=== PATIENT | female | born 1995 | race Caucasian/White ===

== ENCOUNTER 2019-01-06 02:55 | Emergency (ER) | payer SELFPAY ==
[2019-01-06 03:20] VITALS: BMI 31.6
[2019-01-06 04:07] LABS: BASO % 0.5 % (0-2.0); EOS % 0.3 % (0-4.5); HEMATOCRIT 40.4 % (32.4-45.2); HEMOGLOBIN 13.4 GM/dL (10.7-15.3); LYMPH % 18.2 % (8-40); MCH 29.3 pg (25.7-33.7); MCHC 33.2 g/dl (32.0-36.0); MEAN CELL VOLUME 88.2 fl (80-96); MEAN PLT VOLUME 9.2 fl (7.5-11.1); PLATELET COUNT 319 K/MM3 (134-434); RBC 4.58 M/mm3 (3.60-5.2); RDW 14.1 % (11.6-15.6); WHITE BLOOD COUNT 14.6 K/mm3 (4.0-10.0)
--- NOTE | 2019-01-06 04:55 | PDOC ---
History of Present Illness - General Chief Complaint: Vaginal Bleeding Stated Complaint: VAGINAL BLEEDING, 6 WKS Time Seen by Provider: 01/06/19 03:26 - History of Present Illness Initial Comments: 01/06/19 04:57 23 yo , A0, at 7 wga, visualized on home/office test, LMP (), no significant pmh who p/w vaginal bleeding. Patient reports acute onset of vaginal bleeding at approximately 130 AM noticed after urination with wiping on toilet paper. Also endorses diffuse crampy, abdominal pain with absent pelvic pain. Patient states pain consistent with prior menstruation. No identifiable triggers or alleviators. Denies recent abdominal trauma. Patient denies SOTO, vision change, palpitations, cough, wheezing, orthopena, PND , leg swelling/pain, N/V, F,C, CP, SOB, urinary complaints, hematuria, BPR, vaginal burning/itching, diarrhea, constipation, lightheadedness, weakness, sensory changes. 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 No weakness. HEAD, EYES, EARS, NOSE AND THROAT: No change in vision. No ear pain or discharge. No sore throat. CARDIOVASCULAR: No chest pain or shortness of breath RESPIRATORY: No cough, wheezing, or hemoptysis. GASTROINTESTINAL: No nausea, vomiting, diarrhea or constipation. GENITOURINARY: + Vaginal bleeding, abdominal pain. No dysuria, frequency, or change in urination. MUSCULOSKELETAL: No joint or muscle swelling or pain. No neck or back pain. SKIN: No rash NEUROLOGIC: No headache, vertigo, loss of consciousness, or change in strength/ sensation. ENDOCRINE: No increased thirst. No abnormal weight change HEMATOLOGIC/LYMPHATIC: No anemia, easy bleeding, or history of blood clots. ALLERGIC/IMMUNOLOGIC: No hives or skin allergy. *Physical Exam - Vital Signs Last Vital Signs Temp Pulse Resp BP Pulse Ox 98.3 F 81 19 117/64 99 01/06/19 02:55 01/06/19 02:55 01/06/19 02:55 01/06/19 02:55 01/06/19 02:55 - Physical Exam Comments: 01/06/19 05:01 GENERAL: Awake, alert, and fully oriented, in no acute distress HEAD: No signs of trauma, normocephalic, atraumatic EYES: PERRLA, EOMI, sclera anicteric, conjunctiva clear ENT: Auricles normal inspection, hearing grossly normal, nares patent, oropharynx clear without exudates. Moist mucosa NECK: Normal ROM, supple, no lymphadenopathy, JVD, or masses LUNGS: No distress, speaks full sentences, clear to auscultation bilaterally HEART: Regular rate and rhythm, normal S1 and S2, no murmurs, rubs or gallops, peripheral pulses normal and equal bilaterally. ABDOMEN: Soft, diffuse ttp, normoactive bowel sounds. No guarding, no rebound. No masses. Neg CVA ttp. GENITOURINARY: Nml appearing external genitalia, with absent lesions. Vaginal vault with dark brown discharge. Cervical os closed. Neg CMT on BM. Neg adenexal ttp, or mass palpated. EXTREMITIES : Normal inspection, Normal range of motion, no edema. No clubbing or cyanosis. NEUROLOGICAL: Cranial nerves II through XII grossly intact. Normal speech, normal gait, no focal sensorimotor deficits SKIN: Warm, Dry, normal turgor, no rashes or lesions noted ED Treatment Course - LABORATORY CBC & Chemistry Diagram: 01/06/19 03:57 01/06/19 03:57 - ADDITIONAL ORDERS Additional order review: 01/06/19 03:57 RBC 4.58 MCV 88.2 MCHC 33.2 RDW 14.1 MPV 9.2 Neutrophils % 77.0 Lymphocytes % 18.2 Monocytes % 4.0 Eosinophils % 0.3 Basophils % 0.5 Medical Decision Making - Medical Decision Making 01/06/19 05:25 23 yo , A0, at 7 wga, visualized on home/office test, LMP (), no significant pmh who p/w vaginal bleeding and diffuse abdominal pain. Vitals wnl, AF, A&Ox3. Physical exam with diffuse abdominal ttp. exam with brown discharge in vaginal vault. Will assess for viable IUP vs. LUIS ALFREDO, ectopic , heterotopic , threatened . Will consider cystitis, nephrolithaisis, colitis. ED Course: 01/06/19 05:59 Laboratory Tests 01/06/19 01/06/19 01/06/19 03:57 03:57 04:50 WBC 14.6 H Hgb 13.4 Hct 40.4 Plt Count 319 Sodium 137 Potassium 3.4 L BUN 8.6 Creatinine 0.6 Troponin I < 0.02 Beta HCG, Quant 94581.4 Urine Color Yellow Urine Nitrite Negative 01/06/19 06:28 Bedside transabdominal u/s with absent definitive Patient pending TVUS, blood type O+ 01/06/19 06:28 Stable, plan to endorse to day team *DC/Admit/Observation/Transfer Diagnosis at time of Disposition: Vaginal bleeding during - Discharge Dispostion Condition at time of disposition: Stable - Referrals - Patient Instructions Printed Discharge Instructions: DI for Vaginal Bleeding During Additional Instructions: Please return to the emergency department with any new or worsening symptoms or concerns. Please follow up with your Honing Job Setter or primary care physician within 48 hours. Return to ED in 48 hours for repeat testing. - Post Discharge Activity
[2019-01-06 05:04] LABS: URINE APPEARANCE CLEAR; URINE BILIRUBIN NEGATIVE (NEGATIVE); URINE COLOR YELLOW; URINE GLUCOSE (UA) NEGATIVE (NEGATIVE); URINE KETONE 1+ (NEGATIVE); URINE LEUK ESTERASE NEGATIVE (NEGATIVE); URINE NITRITE NEGATIVE (NEGATIVE); URINE PROTEIN NEGATIVE (NEGATIVE); URINE UROBILINOGEN 0.2 mg/dL (0.2-1.0)
[2019-01-06 05:10] LABS: ANION GAP 9 MMOL/L (8-16); BLOOD UREA NITROGEN 8.6 mg/dL (7-18); CALCIUM 9.2 mg/dL (8.5-10.1); CHLORIDE 105 mmol/L (98-107); CO2 23 mmol/L (21-32); CREATININE 0.6 mg/dL (0.55-1.3); GLUCOSE,RANDOM 98 mg/dL (74-106); POTASSIUM 3.4 mmol/L (3.5-5.1); SODIUM 137 mmol/L (136-145)
[2019-01-06 05:20] LABS: INR 1.24 (0.83-1.09); PROTHROMBIN TIME (PATIENT) 14.7 SEC (9.7-13.0)
--- NOTE | 2019-01-06 06:44 | PDOC ---
Documentation entered by Ramon Dodge SCRIBE, acting as scribe for Cortney Self DO. Cortney Self DO: This documentation has been prepared by the Dar gutiérrez Daniel, SCRIBE, under my direction and personally reviewed by me in its entirety. I confirm that the documentation accurately reflects all work , treatment, procedures, and medical decision making performed by me. Attending Attestation - Resident Resident Name: Samy House - ED Attending Attestation I have performed the following: I have examined & evaluated the patient, The case was reviewed & discussed with the resident, I agree w/resident's findings & plan - HPI HPI: 01/06/19 04:44 The patient is a 23 year old female with no past medical history here today for evaluation of vaginal bleeding and abdominal pain. The patient reports that she has been having bright red blood streaking and diffuse abdominal pain that is more prominent in the upper quadrants since 1 AM. She notes that her abdominal pain is similar to her menstrual cramping. She reports being 6 weeks via office test. Patient denies headache, lightheadedness. Denies fever, chills. Denies chest pain, shortness of breath. Denies nausea, vomiting, diarrhea. Allergies: NKA - Physicial Exam PE: 01/06/19 04:44 Agree with the resident's physical exam. - Medical Decision Making 01/06/19 06:43 23-year-old female with positive , abdominal cramps and bleeding Patient's beta quantitative level is higher than expected for given dates No definitive intrauterine gestation found on bedside ultrasound Formal ultrasound ordered and pending Case signed out to oncoming shift
[2019-01-06 07:36] VITALS: BP 117/71; PULSE 87; TEMP 97.9
[2019-01-06 07:51] LABS: ALBUMIN 3.9 g/dl (3.4-5.0); ALK PHOS 71 U/L (45-117); BILIRUBIN,TOTAL 0.3 mg/dL (0.2-1); SGOT/AST 12 U/L (15-37); SGPT/ALT 17 U/L (13-61); TOT PROT 7.2 g/dl (6.4-8.2)
--- NOTE | 2019-01-06 10:16 | PDOC ---
*Physical Exam - Vital Signs Last Vital Signs Temp Pulse Resp BP Pulse Ox 97.9 F 87 19 117/71 99 01/06/19 07:13 01/06/19 07:13 01/06/19 02:55 01/06/19 07:13 01/06/19 07:13 - Physical Exam Comments: 01/06/19 10:14 23-year-old female presents with vaginal bleeding. Beta-hCG is noted to be 93, 000. Transvaginal ultrasound shows an IUP at 6 weeks 5 days with FH of 120. Trace fluid in the cul-de-sac and bilateral corpus luteum cyst. Patient's vital signs stable. Patient's Rh+. Urinalysis reveals no pyuria. Will discharge with diagnosis of threatened with OB follow-up. ED Treatment Course - LABORATORY CBC & Chemistry Diagram: 01/06/19 03:57 01/06/19 03:57 - ADDITIONAL ORDERS Additional order review: Laboratory Results 01/06/19 01/06/19 01/06/19 04:50 03:57 03:57 PT with INR 14.70 H INR 1.24 H Sodium Potassium Chloride Carbon Dioxide Anion Gap BUN Creatinine Est GFR (CKD-EPI)AfAm Est GFR (CKD-EPI)NonAf Random Glucose Calcium Total Bilirubin AST ALT Alkaline Phosphatase Creatine Kinase Troponin I Total Protein Albumin Beta HCG, Quant Urine Color Yellow Urine Appearance Clear Urine pH 6.0 Ur Specific Franklin 1.026 Urine Protein Negative Urine Glucose (UA) Negative Urine Ketones 1+ H Urine Blood Negative Urine Nitrite Negative Urine Bilirubin Negative Urine Urobilinogen 0.2 Ur Leukocyte Esterase Negative Blood Type O POSITIVE Antibody Screen Negative 01/06/19 03:57 PT with INR INR Sodium 137 Potassium 3.4 L Chloride 105 Carbon Dioxide 23 Anion Gap 9 BUN 8.6 Creatinine 0.6 Est GFR (CKD-EPI)AfAm 148.90 Est GFR (CKD-EPI)NonAf 128.48 Random Glucose 98 Calcium 9.2 Total Bilirubin 0.3 AST 12 L ALT 17 Alkaline Phosphatase 71 Creatine Kinase 86 Troponin I < 0.02 Total Protein 7.2 Albumin 3.9 Beta HCG, Quant 10805.4 Urine Color Urine Appearance Urine pH Ur Specific Franklin Urine Protein Urine Glucose (UA) Urine Ketones Urine Blood Urine Nitrite Urine Bilirubin Urine Urobilinogen Ur Leukocyte Esterase Blood Type Antibody Screen 01/06/19 03:57 RBC 4.58 MCV 88.2 MCHC 33.2 RDW 14.1 MPV 9.2 Neutrophils % 77.0 Lymphocytes % 18.2 Monocytes % 4.0 Eosinophils % 0.3 Basophils % 0.5 *DC/Admit/Observation/Transfer Diagnosis at time of Disposition: Vaginal bleeding during , Threatened - Discharge Dispostion Disposition: HOME Condition at time of disposition: Stable - Referrals Referrals: Aure Hardin MD [Staff Physician] - - Patient Instructions Printed Discharge Instructions: DI for Vaginal Bleeding During , DI for Threatened Additional Instructions: Please return to the emergency department with any new or worsening symptoms or concerns. Please follow up with your Switch Tender or primary care physician within 48 hours. Return to ED in 48 hours for repeat testing. Print Language: [place] R[place] - Post Discharge Activity
== END 2019-01-06 10:23 | disposition home or self-care (01) ==
LOC: JER 02:55
DX: O26.891 Other specified pregnancy related conditions, first trimester (principal); Z3A.01 Less than 8 weeks gestation of pregnancy; N93.9 Abnormal uterine and vaginal bleeding, unspecified; R10.9 Unspecified abdominal pain
CPT/HCPCS: 36415; 76801-TC; 80048; 80053; 81003; 82550; 84484; 84702; 85025; 85610; 86850; 86900; 86901; 87086; 99282-25

== ENCOUNTER 2019-08-20 14:15 | Inpatient (IN) | payer OTHER ==
[2019-08-20] MEDS ORDERED: morphine SULFATE/PF 0.5 MG/ML (2cc Syringe - QUVA) ONE ×2 (14:37→16:11)
[2019-08-20] MEDS ORDERED: ceFAZolin SODIUM 1 GM VIAL ONE (14:37)
[2019-08-20] MEDS ORDERED: IBUPROFEN 600 MG TABLET (FP) PO PRN (15:35)
[2019-08-20] MEDS ORDERED: ACETAMINOPHEN 325 MG TABLET (FP) PO PRN (15:35)
[2019-08-20] MEDS ORDERED: ONDANSETRON 4 MG/2 ML VIAL IVPUSH PRN ×2 (15:35→17:51)
[2019-08-20] MEDS ORDERED: ELECTROLYTE-148 SOLN 1,000 ML IV SCH (15:45)
--- NOTE | 2019-08-20 15:45 | HP ---
Past Medical History - Primary Care Physician PCP:: Ottoniel Potts - Admission Chief Complaint: 39 weeks, previous c/s, request of repeat c/s History of Present Illness: 23 yo f with 39 weeks ,previous c/s, request of repeat c/s, risks of repeat c/s has discussed with patient, cx clp, vx -3 mi, fhr cat1 History Source: Patient Limitations to Obtaining History: Language Barrier - Past Surgical History Past Surgical History: Yes: Hx Myomectomy: No Hx Transabdominal Cerclage: No - Smoking History Smoking history: Never smoked Have you smoked in the past 12 months: No - Alcohol/Substance Use Hx Alcohol Use: No - Social History History of Recent Travel: No Home Medications - Allergies Allergies/Adverse Reactions: Allergies Allergy/AdvReac Type Severity Reaction Status Date / Time No Known Allergies Allergy Verified 01/06/19 03:20 - Home Medications Home Medications: Ambulatory Orders Vitamins (Sjr) - 1 tab PO DAILY 08/20/19 Valtrex 500 mg PO DAILY 08/20/19 Ibuprofen 600 mg PO Q6H PRN #30 tablet 08/23/19 Review of Systems - Review of Systems Constitutional: reports: No Symptoms Eyes: reports: No Symptoms HENT: reports: No Symptoms Neck: reports: No Symptoms Cardiovascular: reports: No Symptoms Respiratory: reports: No Symptoms Gastrointestinal: reports: No Symptoms Genitourinary: reports: No Symptoms Breasts: reports: No Symptoms Reported Musculoskeletal: reports: No Symptoms Integumentary: reports: No Symptoms Neurological: reports: No Symptoms Endocrine: reports: No Symptoms Hematology/Lymphatic: reports: No Symptoms Psychiatric: reports: No Symptoms Physical Exam - Maternity Constitutional: Yes: Well Nourished, No Distress, Calm Eyes: Yes: WNL, Conjunctiva Clear, EOM Intact HENT: Yes: WNL, Atraumatic, Normocephalic Neck: Yes: WNL, Supple, Trachea Midline Cardiovascular: Yes: WNL, Regular Rate and Rhythm Breast(s): Yes: WNL - Abdominal Exam/OB Fundal Height: 40 Number of Fetuses: Single Presentation: Vertex Contractions: No Intensity: Unaware Monitor Mode: External Heart Rate Location: [facility] Category: I - Vaginal Exam/OB Vaginal Bleediing: No Speculum Exam: No Dilatation (cm): closed Effacement (%): 0 Amniotic Membrane Status: Intact Presentation: Vertex/Position Station: -3 - Physical Exam Musculoskeletal: Yes: WNL Extremities: Yes: WNL Edema: LLE: Trace, RLE: Trace Deep Tendon Reflex Grade: Normal +2 Psychiatric: Yes: WNL Hemorrhage Risk Assessment - Risk Factors Medium Risk Factors: Yes: Prior , uterine surgery,or multiple laparotomies Risk Score: 1 Risk Level: Medium Risk Problem List - Problems (1) 39 weeks gestation of Code(s): Z3A.39 - 39 WEEKS GESTATION OF (2) with 39 completed weeks gestation Code(s): Z3A.39 - 39 WEEKS GESTATION OF (3) Previous section complicating Code(s): O34.219 - MATERNAL CARE FOR UNSP TYPE SCAR FROM PREVIOUS DEL Assessment/Plan repeat c/s
[2019-08-20] MEDS ORDERED: CITRIC ACID/SODIUM CITRATE 30 ML UNIT-DOSE CUP PO ONE (15:46)
[2019-08-20 15:54] VITALS: BMI 33.6
[2019-08-20] MEDS ORDERED: OXYTOCIN 20 UNITS in 0.9% NS 20 UNIT/1,000 ML INFUS.BAG IV ONE ×2 (16:08→18:28)
[2019-08-20] MEDS ORDERED: OXYTOCIN 10 UNITS/ML VIAL ONE (16:09)
[2019-08-20] MEDS ORDERED: KETOROLAC TROMETHAMINE 30 MG/1 ML VIAL ONE ×2 (16:57→16:58)
[2019-08-20] MEDS ORDERED: IBUPROFEN 800 MG/8 ML IJ IVPB PRN (17:37)
[2019-08-20] MEDS ORDERED: WITCH HAZEL 50% (TUCKS) 40 PAD/JAR PAD TP PRN (17:37)
[2019-08-20] MEDS ORDERED: BENZOCAINE 20% 57 GM BOTTLE TP PRN (17:37)
[2019-08-20] MEDS ORDERED: BENZOCAINE 28 GM HEMORRHOIDAL OINTMENT PR PRN (17:37)
[2019-08-20] MEDS ORDERED: METHYLERGONOVINE MALEATE 0.2 MG/1 ML AMP IM PRN (17:37)
[2019-08-20] MEDS ORDERED: diphenhydrAMINE HCL 25 MG CAPSULE (FP) PO PRN (17:37)
[2019-08-20] MEDS ORDERED: oxyCODONE HCL 5 MG TABLET PO PRN ×2 (17:37)
--- NOTE | 2019-08-20 17:43 | OP ---
Operative Note - Note: Operative Date: 08/20/19 Pre-Operative Diagnosis: 39 weeks, previuos c/s Operation: repeat LST c/s Findings: live baby girl 9/ rot , cord around neck once Post-Operative Diagnosis: Same as Pre-op Surgeon: Ottoniel Potts Cycle Consultant: Eugenio Humphries Anesthesia: Spinal Specimens Removed: placenta Estimated Blood Loss (mls): 500 Drains & Tubes with Location: wolf Drains, Volume Out (mls): 300 Blood Volume Replaced (mls): 0 Fluid Volume Replaced (mls): 1,300 Operative Report Dictated: Yes
[2019-08-20] MEDS ORDERED: DEXTROSE 5%-LACTATED RINGERS 1,000 ML IV SCH (17:45)
[2019-08-20] MEDS ORDERED: morphine SULFATE/PF 0.5 MG/ML (2cc Syringe - QUVA) EP ONE (17:51)
[2019-08-20] MEDS ORDERED: CEFAZOLIN 1 GM/D5W 1 GM/50 ML BAG IVPB SCH (18:00)
[2019-08-20] MEDS: OXYTOCIN 20 UNITS in 0.9% NS 20 UNIT/1,000 ML INFUS.BAG IV SCH (18:16)
[2019-08-21] MEDS: CEFAZOLIN 1 GM/D5W 1 GM/50 ML BAG IVPB SCH ×3 (03:04→19:18)
[2019-08-21] MEDS: OXYTOCIN 20 UNITS in 0.9% NS 20 UNIT/1,000 ML INFUS.BAG IV SCH (04:57)
[2019-08-21 09:36] LABS: BASO % 0.2 % (0-2.0); EOS % 0.7 % (0-4.5); HEMATOCRIT 32.4 % (32.4-45.2); HEMOGLOBIN 10.7 GM/dL (10.7-15.3); LYMPH % 28.1 % (8-40); MCHC 32.9 g/dl (32.0-36.0); MEAN CELL VOLUME 84.9 fl (80-96); MEAN PLT VOLUME 9.9 fl (7.5-11.1); MONO % 7.5 % (3.8-10.2); NEUT % 63.5 % (42.8-82.8); PLATELET COUNT 216 K/MM3 (134-434); RBC 3.81 M/mm3 (3.60-5.2); RDW 17.1 % (11.6-15.6); WHITE BLOOD COUNT 9.1 K/mm3 (4.0-10.0)
[2019-08-21] MEDS: ENOXAPARIN NA (PORCINE) 40 MG/0.4 ML DISP.SYRIN SQ SCH (10:16)
[2019-08-21] MEDS: IBUPROFEN 600 MG TABLET (FP) PO PRN ×2 (16:51→23:44)
[2019-08-21] MEDS: SIMETHICONE 80 MG TAB.CHEW (FP) PO PRN ×2 (16:51→23:44)
[2019-08-21] MEDS: ACETAMINOPHEN 325 MG TABLET (FP) PO PRN ×2 (16:53→23:44)
[2019-08-21] MEDS ORDERED: BISACODYL 10 MG SUPP.RECT RC PRN (17:37)
--- NOTE | 2019-08-21 18:41 | PN ---
Progress Note (short form) - Note Progress Note: pod 1 s/p repeat /s , wolf was removed , was unable to void , was straight cath for 900cc CBC, BMP 08/21/19 08:27 Last Vital Signs Temp Pulse Resp BP Pulse Ox 97.8 F 73 20 90/58 L 08/21/19 10:00 08/21/19 10:00 08/21/19 17:00 08/21/19 10:00 abdomen soft, non tender, no cva BS present , no distention incision dry, clean no excess vaginal bleeding impression post op urinary retention most likly related to spinal anesthesia plan keep wolf for 24 hr urine c/s ambulate , advance diet
[2019-08-21 19:06] LABS: EPI CELLS 0.3 /HPF (0-5/HPF); HYALINE CASTS 0 /lpf (0-8); PH,URINE 6.5 (5.0-8.0); URINE APPEARANCE CLEAR; URINE BACTERIA 0.3 /hpf (NEGATIVE); URINE BILIRUBIN NEGATIVE (NEGATIVE); URINE COLOR YELLOW; URINE GLUCOSE (UA) NEGATIVE (NEGATIVE); URINE KETONE NEGATIVE (NEGATIVE); URINE LEUK ESTERASE NEGATIVE (NEGATIVE); URINE NITRITE NEGATIVE (NEGATIVE); URINE PROTEIN NEGATIVE (NEGATIVE); URINE RBC 1 /hpf (0-4); URINE UROBILINOGEN 0.2 mg/dL (0.2-1.0); URINE WBC 0 /hpf (0-5)
--- NOTE | 2019-08-21 21:33 | PN ---
Progress Note (short form) - Note Progress Note: Anesthesia Post Op Note Pt s/p c/section under spinal Pt awake alert denies n/v, no puritis, ambulating well, no urinary retention reports good pain control VSS no apparent anesthesia complications Prabha Banda.
[2019-08-22] MEDS: CEFAZOLIN 1 GM/D5W 1 GM/50 ML BAG IVPB SCH ×3 (01:52→18:16)
[2019-08-22] MEDS: IBUPROFEN 600 MG TABLET (FP) PO PRN ×3 (08:24→21:24)
[2019-08-22] MEDS: SIMETHICONE 80 MG TAB.CHEW (FP) PO PRN ×3 (08:24→21:22)
[2019-08-22] MEDS: ENOXAPARIN NA (PORCINE) 40 MG/0.4 ML DISP.SYRIN SQ SCH (11:42)
[2019-08-22] MEDS: ACETAMINOPHEN 325 MG TABLET (FP) PO PRN (13:32)
[2019-08-22] MEDS ORDERED: SENNOSIDES/DOCUSATE COMBO (SENNA PLUS) TABLET (UD) PO PRN (22:00)
[2019-08-23] MEDS: ACETAMINOPHEN 325 MG TABLET (FP) PO PRN ×2 (00:35→12:17)
[2019-08-23] MEDS: SIMETHICONE 80 MG TAB.CHEW (FP) PO PRN (08:05)
[2019-08-23 08:57] LABS: BASO % 0.4 % (0-2.0); EOS % 1.5 % (0-4.5); HEMATOCRIT 32.2 % (32.4-45.2); HEMOGLOBIN 10.8 GM/dL (10.7-15.3); LYMPH % 34.6 % (8-40); MCH 28.2 pg (25.7-33.7); MCHC 33.6 g/dl (32.0-36.0); MEAN CELL VOLUME 83.9 fl (80-96); MEAN PLT VOLUME 9.1 fl (7.5-11.1); MONO % 7.2 % (3.8-10.2); NEUT % 56.3 % (42.8-82.8); PLATELET COUNT 253 K/MM3 (134-434); RBC 3.83 M/mm3 (3.60-5.2); RDW 17.2 % (11.6-15.6); WHITE BLOOD COUNT 7.9 K/mm3 (4.0-10.0)
[2019-08-23] MEDS: ENOXAPARIN NA (PORCINE) 40 MG/0.4 ML DISP.SYRIN SQ SCH (10:33)
[2019-08-23 11:50] VITALS: BP 105/47; PULSE 83; TEMP 97.8
[2019-08-23] MEDS: IBUPROFEN 600 MG TABLET (FP) PO PRN (12:15)
--- NOTE | 2019-08-25 18:37 | PATH ---
Surgical Pathology Report Patient Name: THELMA CONSTANTINO Med. Rec. 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 Specimen(s) Received PLACENTA Clinical History , 39 gestational weeks, repeat scheduled Final Diagnosis PLACENTA, SECTION: 597 G THIRD TRIMESTER PLACENTA WITH TRIVASCULAR UMBILICAL CORD AND UNREMARKABLE PLACENTAL MEMBRANES. Electronically Signed Josette Jean M.D. Gross Description The specimen is received fresh labeled placenta and is a 597 gram, 21.0 x 19.0 x 2.6 cm. placenta with attached membranes and umbilical cord. The attached membranes are williamson, thick, cloudy and insert marginally. The umbilical cord measures 37 cm. in length and averages 1.4 cm. in diameter. The cord inserts eccentrically, 5 cm. to the nearest margin. No true knots or strictures are identified. Cut surface of the umbilical cord reveals 3 vessels. The surface is aguayo-blue with minimal fibrin deposition and appropriate caliber vessels. The maternal surface is red-brown with focal defects. Sectioning reveals red-brown, spongy parenchyma. No lesions are identified. Scanner Operator sections are submitted in three cassettes as follows: 1- membrane rolls and umbilical cord; 2-3- full thickness sections of placenta. /08/24/2019 [facility]08/24/2019
--- NOTE | 2019-09-21 11:05 | DS ---
Physical Exam-WINDSHIELD REPAIR TECHNICIAN Vital Signs: Vital Signs Temperature 97.8 F 08/23/19 10:00 Pulse Rate 83 08/23/19 10:00 Respiratory Rate 20 08/23/19 10:00 Blood Pressure 105/47 L 08/23/19 10:00 O2 Sat by Pulse Oximetry (%) Constitutional: Yes: Well Nourished Eyes: Yes: WNL HENT: Yes: WNL Neck: Yes: WNL Cardiovascular: Yes: WNL Respiratory: Yes: WNL Gastrointestinal: Yes: WNL ....Post : Yes: Uterus firm, Uterus non-tender, Slight lochia rubra Edema: No Wound/Incision: Yes: Clean/Dry, Well Approximated Psychiatric: Yes: WNL Labs: CBC, BMP 08/23/19 08:25 Delivery - Delivery Section: Repeat Type of Anesthesia: Spinal Episiotomy/Laceration: None EBL (cc): 500 Delivery, Single - Stages of Labor Date of Delivery: 08/20/19 Time of Delivery: 17:00 Time Placenta Delivered: 17:02 Placenta: Yes: Expressed - Condition of Infant Process Design Engineer/Software Sales Executive Present: Yes Name: Chelita Pizarro Gender: Female Weight: 7 lb 11 oz Position: Right, OT Total Hours ROM (Hrs/Mins): 1min. - 1 Minute Total Score: 9 5 Minutes Total Score: 9 - [place] Feeding Plan Initial Plan: Elected not to breastfeed exclusively throughout hospitalization Discharge Summary Problems reviewed: Yes Reason For Visit: REPEAT Procedures: Principal: repeat LST c/s Other Procedures: none Hospital Course: no complication Plan of Treatment: follow up [facility] care 1 week Condition: Stable - Instructions Diet, Activity, Other Instructions: Regular Diet Follow up in one week for an incision check Referrals: Ottoniel Potts MD [Staff Physician] - Disposition: HOME - Home Medications Comprehensive Discharge Medication List: Ambulatory Orders Vitamins (Sjr) - 1 tab PO DAILY 08/20/19 Valtrex 500 mg PO DAILY 08/20/19 Ibuprofen 600 mg PO Q6H PRN #30 tablet 08/23/19
--- NOTE | 2019-09-21 19:36 | OP ---
DATE OF OPERATION: 08/20/2019 PREOPERATIVE DIAGNOSIS: , 39 weeks, previous section, request of repeat section. POSTOPERATIVE DIAGNOSIS: , 39 weeks, previous section, request of repeat section. PROCEDURE: Repeat low segment transverse section. SURGEON: Conner Potts MD. ENGLISH COMPOSITION TEACHER: SASCHA Arora. ANESTHESIA: Spinal. ESTIMATED BLOOD LOSS: 500 mL. OPERATION: Patient was taken to operating room with adequate spinal anesthesia. Abdomen and perineum were prepped and draped. Pfannenstiel abdominal skin incision was made. Abdominal wall was cut layer by layer until the peritoneum was exposed and incised. Upon entering the abdominal cavity, the lower uterine segment was identified, and uterovesical fold of the peritoneum was established. The bladder was pushed down. A low transverse incision was made with knife extended laterally bandage scissors. Amniotic sac was entered. Clear fluid. Head delivered. Nasopharynx was suctioned. A live baby was delivered without any difficulty. Placenta was delivered manually. Uterine cavity was cleared of all remaining tissue. Uterine incision was closed in 2 layers, the 1st layer with 0 Biosyn continuous suture, the 2nd layer with 0 Biosyn imbricating the 1st layer. Bladder flap was closed with 0 Biosyn continuous suture. Both tubes and ovaries were checked and were normal. No active bleeding was seen. Pelvic cavity irrigated. All the lap, sponge, and instrument counts were correct. Peritoneum was closed with 0 Biosyn continuous suture. Muscles were brought together interrupted suture with 0 Biosyn. Fascia was closed with 0 Biosyn continuous sutures. Subcutaneous fat interrupted sutures 0 Biosyn, and the skin was closed with zan. The patient tolerated the procedure well and left the OR in good condition. CONNER POTTS M.D. [id number]
== END 2019-08-23 13:15 | disposition home or self-care (01) | DRG 540 ==
LOC: JLDR 14:15 → J3W 19:45
PROVIDERS: ADMIT Obstetrics & Gynecology; ATTEND Obstetrics & Gynecology
PROC: 10D00Z1 Extraction of Products of Conception, Low, Open Approach (ICD-10-PCS; principal; 2019-08-20)
DX: O34.211 Maternal care for low transverse scar from previous cesarean delivery (principal); N85.8 Other specified noninflammatory disorders of uterus; Z3A.39 39 weeks gestation of pregnancy; Z37.0 Single live birth
CPT/HCPCS: 36415; 81003; 85025; 87086; 88307-TC

== ENCOUNTER 2021-04-05 04:36 | Day surgery (SDC) | payer OTHER ==
[2021-04-04 09:34] VITALS: BMI 32.9
[2021-04-05] MEDS ORDERED: MIDAZOLAM HCL 2 MG/2 ML SINGLE DOSE VIAL ONE (14:00)
[2021-04-05] MEDS ORDERED: SUCCINYLCHOLINE CHLORIDE 200 MG/10 ML SYRINGE ONE (14:01)
[2021-04-05] MEDS ORDERED: PROPOFOL 20 ML ONE ×2 (14:01)
[2021-04-05] MEDS ORDERED: KETOROLAC TROMETHAMINE 30 MG/1 ML VIAL ONE (14:05)
[2021-04-05] MEDS ORDERED: DEXAMETHASONE SOD PHOSPHATE 4 MG/1 ML VIAL ONE (14:05)
[2021-04-05] MEDS ORDERED: ceFAZolin 2 GRAM PREMIX BAG IVPB ONE (14:17)
[2021-04-05] MEDS ORDERED: ceFAZolin SODIUM 1 GM VIAL ONE (14:17)
[2021-04-05] MEDS ORDERED: ONDANSETRON 4 MG/2 ML VIAL IVPUSH PRN ×2 (14:40→14:44)
[2021-04-05] MEDS ORDERED: oxyCODONE HCL 5 MG TABLET PO PRN ×2 (14:40→14:44)
[2021-04-05] MEDS ORDERED: IBUPROFEN 800 MG/8 ML IJ IVPB PRN (14:44)
[2021-04-05] MEDS ORDERED: IBUPROFEN 600 MG TABLET (FP) PO PRN (14:44)
[2021-04-05] MEDS ORDERED: ELECTROLYTE-148 SOLN 1,000 ML IV SCH (14:45)
[2021-04-05 16:59] VITALS: BP 103/54; PULSE 72; TEMP 97.7
== END 2021-04-05 17:25 | disposition home or self-care (01) ==
LOC: JASU-SURG 04:36
PROVIDERS: ATTEND Obstetrics & Gynecology
PROC: 10D17ZZ Extraction of Products of Conception, Retained, Via Natural or Artificial Opening (ICD-10-PCS; principal; 2021-04-05 14:00)
DX: O03.4 Incomplete spontaneous abortion without complication (principal)
CPT/HCPCS: 88305-TC; 94760

== ENCOUNTER 2022-06-12 06:15 | Inpatient (IN) | payer OTHER ==
[2022-06-12] MEDS ORDERED: ELECTROLYTE-148 SOLN 500 ML IV SCH ×2 (06:30→07:00)
[2022-06-12] MEDS ORDERED: CITRIC ACID/SODIUM CITRATE 30 ML UNIT-DOSE CUP PO ONE ×2 (06:30→10:28)
[2022-06-12 06:46] VITALS: BMI 36.6
[2022-06-12] MEDS ORDERED: PHENYLEPHRINE HCL 10 MG/1 ML SINGLE DOSE VIAL ONE (07:56)
[2022-06-12] MEDS ORDERED: morphine SULFATE/PF 1 MG/2 ML (2cc Syringe - QUVA) ONE (07:56)
[2022-06-12] MEDS ORDERED: ONDANSETRON 4 MG/2 ML VIAL ONE (07:56)
[2022-06-12] MEDS ORDERED: OXYTOCIN 10 UNITS/ML VIAL ONE (07:56)
[2022-06-12] MEDS ORDERED: KETOROLAC TROMETHAMINE 30 MG/1 ML VIAL ONE (07:56)
[2022-06-12] MEDS ORDERED: FENTANYL CITRATE/PF 50 MCG/ML VIAL ONE (07:57)
[2022-06-12] MEDS ORDERED: ACETAMINOPHEN 1000 MG/100 ML BAG IVPB PRN (10:30)
[2022-06-12] MEDS ORDERED: IBUPROFEN 800 MG/8 ML IJ IVPB PRN (10:30)
[2022-06-12] MEDS ORDERED: ELECTROLYTE-148 SOLN 1,000 ML IV SCH (10:30)
[2022-06-12] MEDS ORDERED: SENNOSIDES/DOCUSATE COMBO (SENNA PLUS) TABLET (UD) PO PRN (10:30)
[2022-06-12] MEDS ORDERED: oxyCODONE HCL 5 MG TABLET PO PRN (10:30)
[2022-06-12] MEDS ORDERED: OXYTOCIN 20 UNITS in 0.9% NS 20 UNIT/1,000 ML INFUS.BAG IV SCH (10:30)
[2022-06-12] MEDS ORDERED: ONDANSETRON 4 MG/2 ML VIAL IVPB PRN (10:30)
[2022-06-12] MEDS ORDERED: METHYLERGONOVINE MALEATE 0.2 MG/1 ML AMP IM ONE ×2 (11:45→14:30)
[2022-06-12] MEDS: CEFAZOLIN SODIUM 2 GM in DEXTROSE 5%-WATER 100 ML IVPB SCH (18:13)
[2022-06-12] MEDS ORDERED: OXYTOCIN 20 UNITS in 0.9% NS 20 UNIT/1,000 ML INFUS.BAG IV ONE (18:18)
[2022-06-12] MEDS: SIMETHICONE 80 MG TAB.CHEW (FP) PO PRN (21:05)
[2022-06-13] MEDS: CEFAZOLIN SODIUM 2 GM in DEXTROSE 5%-WATER 100 ML IVPB SCH (02:01)
[2022-06-13] MEDS: ACETAMINOPHEN 325 MG TABLET (FP) PO PRN ×2 (02:38→16:55)
[2022-06-13] MEDS: IBUPROFEN 600 MG TABLET (FP) PO PRN ×3 (06:15→19:38)
[2022-06-13 07:45] LABS: BASO % 0.2 % (0-2.0); HEMATOCRIT 27.7 % (32.4-45.2); HEMOGLOBIN 8.8 GM/dL (10.7-15.3); LYMPH % 25.1 % (8-40); MCH 24.3 pg (25.7-33.7); MCHC 31.8 g/dl (32.0-36.0); MEAN CELL VOLUME 76.6 fl (80-96); MEAN PLT VOLUME 9.2 fl (7.5-11.1); MONO % 7.1 % (3.8-10.2); NEUT % 66.6 % (42.8-82.8); PLATELET COUNT 250 10^3/uL (134-434); RBC 3.61 M/mm3 (3.60-5.2); RDW 17.8 % (11.6-15.6); WHITE BLOOD COUNT 8.2 K/mm3 (4.0-10.0)
[2022-06-13] MEDS ORDERED: BISACODYL 10 MG SUPP.RECT RC PRN (10:30)
[2022-06-13] MEDS: SIMETHICONE 80 MG TAB.CHEW (FP) PO PRN ×2 (10:46→19:38)
[2022-06-14] MEDS: IBUPROFEN 600 MG TABLET (FP) PO PRN (04:27)
[2022-06-14 11:02] VITALS: BP 117/78; PULSE 77; RESP 16; TEMP 98.3
== END 2022-06-14 15:00 | disposition home or self-care (01) | DRG 540 ==
LOC: JLDR 06:15 → J3W 11:55
PROVIDERS: ADMIT Specialist; ATTEND Specialist
PROC: 10D00Z1 Extraction of Products of Conception, Low, Open Approach (ICD-10-PCS; principal; 2022-06-12)
DX: O34.211 Maternal care for low transverse scar from previous cesarean delivery (principal); Z3A.39 39 weeks gestation of pregnancy; Z37.0 Single live birth
CPT/HCPCS: 36415; 80053; 85025; 85027; 85610; 85730; 86780; 86850; 86900; 86901; 87389; 88304-TC; 88307-TC; C9803-CS; U0003; U0005

== ENCOUNTER 2023-01-01 11:46 | Emergency (ER) | payer OTHER ==
[2023-01-01 11:52] VITALS: RESP 18; TEMP 101.6; BMI 33.8
[2023-01-01] MEDS ORDERED: ONDANSETRON 4 MG/2 ML VIAL IVPUSH ONE (12:30)
[2023-01-01] MEDS ORDERED: DEXAMETHASONE SOD PHOSPHATE 10 MG/1 ML VIAL IVPUSH ONE (12:30)
[2023-01-01] MEDS ORDERED: SODIUM CHLORIDE 0.9% 500 ML INFUS.BAG IV ONE (12:30)
[2023-01-01] MEDS ORDERED: KETOROLAC TROMETHAMINE 30 MG/1 ML VIAL IVPUSH ONE (12:30)
[2023-01-01] MEDS ORDERED: ONDANSETRON 4 MG/2 ML VIAL ONE (12:35)
[2023-01-01] MEDS ORDERED: KETOROLAC TROMETHAMINE 30 MG/1 ML VIAL ONE (12:35)
[2023-01-01] MEDS ORDERED: DEXAMETHASONE SOD PHOSPHATE 10 MG/1 ML VIAL ONE (12:36)
[2023-01-01 13:40] LABS: PH,URINE 5.5 (5.0-8.0); URINE APPEARANCE CLEAR; URINE BILIRUBIN NEGATIVE (NEGATIVE); URINE COLOR YELLOW; URINE GLUCOSE (UA) NEGATIVE (NEGATIVE); URINE KETONE NEGATIVE (NEGATIVE); URINE LEUK ESTERASE NEGATIVE (NEGATIVE); URINE NITRITE NEGATIVE (NEGATIVE); URINE PROTEIN NEGATIVE (NEGATIVE); URINE UROBILINOGEN 0.2 mg/dL (0.2-1.0)
[2023-01-01 13:41] LABS: BASO % 0.3 % (0-2.0); HEMATOCRIT 37.4 % (32.4-45.2); HEMOGLOBIN 11.8 GM/dL (10.7-15.3); LYMPH % 7.5 % (8-40); MCH 22.4 pg (25.7-33.7); MCHC 31.5 g/dl (32.0-36.0); MEAN CELL VOLUME 71.2 fl (80-96); MEAN PLT VOLUME 8.6 fl (7.5-11.1); MONO % 6.2 % (3.8-10.2); PLATELET COUNT 359 10^3/uL (134-434); RBC 5.25 M/mm3 (3.60-5.2); RDW 20.4 % (11.6-15.6); WHITE BLOOD COUNT 14.2 K/mm3 (4.0-10.0)
[2023-01-01 14:16] LABS: POTASSIUM 4.4 mmol/L (3.5-5.1)
[2023-01-01 14:19] LABS: CALCIUM 9.1 mg/dL (8.5-10.1)
[2023-01-01 14:21] LABS: ALBUMIN 3.9 g/dl (3.4-5.0); BLOOD UREA NITROGEN 8.1 mg/dL (7-18)
[2023-01-01 14:22] LABS: CREATININE 0.8 mg/dL (0.55-1.3)
[2023-01-01 14:24] LABS: BILIRUBIN,TOTAL 0.4 mg/dL (0.2-1); TOT PROT 7.7 g/dl (6.4-8.2)
[2023-01-01 15:32] VITALS: BP 99/54; PULSE 90
== END 2023-01-01 15:37 | disposition home or self-care (01) ==
LOC: JERFT 11:46
PROC: 3E033GC Introduction of Other Therapeutic Substance into Peripheral Vein, Percutaneous Approach (ICD-10-PCS; principal; 2023-01-01)
PROC: 3E0333Z Introduction of Anti-inflammatory into Peripheral Vein, Percutaneous Approach (ICD-10-PCS; 2023-01-01)
PROC: 3E033GC Introduction of Other Therapeutic Substance into Peripheral Vein, Percutaneous Approach (ICD-10-PCS; 2023-01-01)
DX: R50.9 Fever, unspecified (principal); J02.9 Acute pharyngitis, unspecified; R10.9 Unspecified abdominal pain
CPT/HCPCS: 36415; 74177-TC; 80053; 81003; 84703; 85025; 87086; 87651; 99285-25; J1100; Q9967

== ENCOUNTER 2023-08-10 00:48 | Emergency (ER) | payer OTHER ==
[2023-08-10 00:53] VITALS: BMI 36.6
[2023-08-10] MEDS ORDERED: ACETAMINOPHEN 1000 MG/100 ML BAG IVPB ONE (01:10)
[2023-08-10] MEDS ORDERED: SODIUM CHLORIDE 0.9% 500 ML INFUS.BAG IV ONE (01:10)
[2023-08-10] MEDS ORDERED: ACETAMINOPHEN INJECTION 100 ML IVPB ONE (01:18)
[2023-08-10 01:38] LABS: BASO % 0.3 % (0-2.0); EOS % 0.1 % (0-4.5); HEMATOCRIT 31.7 % (32.4-45.2); HEMOGLOBIN 10.4 GM/dL (10.7-15.3); LYMPH % 5.2 % (8-40); MCH 24.4 pg (25.7-33.7); MCHC 32.9 g/dl (32.0-36.0); MEAN CELL VOLUME 74.2 fl (80-96); MEAN PLT VOLUME 8.1 fl (7.5-11.1); MONO % 9.2 % (3.8-10.2); NEUT % 85.2 % (42.8-82.8); PLATELET COUNT 272 10^3/uL (134-434); RBC 4.28 M/mm3 (3.60-5.2); RDW 20.2 % (11.6-15.6); WHITE BLOOD COUNT 9.6 K/mm3 (4.0-10.0)
[2023-08-10 01:59] LABS: POTASSIUM 3.6 mmol/L (3.5-5.1)
[2023-08-10 02:01] LABS: ALBUMIN 2.7 g/dl (3.4-5.0); CALCIUM 8.9 mg/dL (8.5-10.1)
[2023-08-10 02:02] LABS: BLOOD UREA NITROGEN 6.9 mg/dL (7-18)
[2023-08-10 02:05] LABS: CREATININE 0.7 mg/dL (0.55-1.3)
[2023-08-10 02:06] LABS: BILIRUBIN,TOTAL 0.4 mg/dL (0.2-1); TOT PROT 6.9 g/dl (6.4-8.2)
[2023-08-10 02:37] LABS: PH,URINE 6.5 (5.0-8.0); URINE APPEARANCE CLEAR; URINE BILIRUBIN NEGATIVE (NEGATIVE); URINE COLOR YELLOW; URINE GLUCOSE (UA) NEGATIVE (NEGATIVE); URINE KETONE NEGATIVE (NEGATIVE); URINE LEUK ESTERASE NEGATIVE (NEGATIVE); URINE NITRITE NEGATIVE (NEGATIVE); URINE PROTEIN TRACE (NEGATIVE)
[2023-08-10 02:42] LABS: VENOUS BASE EXCESS -3.3 mmol/L (-2-2); VENOUS O2 SATURATION 96.4 % (70-80); VENOUS PCO2 27.7 mmHg (38-52); VENOUS PH 7.459 (7.310-7.410)
[2023-08-10 04:40] VITALS: BP 114/63; RESP 20
[2023-08-13 13:43] VITALS: PULSE 97; TEMP 98
== END 2023-08-10 05:55 | disposition home or self-care (01) ==
LOC: JER 00:48
PROC: 3E033NZ Introduction of Analgesics, Hypnotics, Sedatives into Peripheral Vein, Percutaneous Approach (ICD-10-PCS; principal; 2023-08-10)
DX: O99.893 Other specified diseases and conditions complicating puerperium (principal); R07.89 Other chest pain; O99.513 Diseases of the respiratory system complicating pregnancy, third trimester; R06.02 Shortness of breath; Z3A.30 30 weeks gestation of pregnancy; Z20.822 Contact with and (suspected) exposure to COVID-19
CPT/HCPCS: 0241U-QW; 36415; 71045-TC-FY; 80053; 81003; 82803; 84484; 85025; 87086; 93005; 93010; 99285-25

== ENCOUNTER 2023-10-08 06:05 | Inpatient (IN) | payer OTHER ==
[2023-10-08] MEDS: ELECTROLYTE-148 SOLN 500 ML IV SCH (06:30)
[2023-10-08 06:45] VITALS: BMI 37.6
[2023-10-08] MEDS: CITRIC ACID/SODIUM CITRATE 30 ML UNIT-DOSE CUP PO ONE (07:16)
[2023-10-08] MEDS ORDERED: LIGASURE IMPACT TP ONE (08:11)
[2023-10-08] MEDS ORDERED: FENTANYL CITRATE/PF 50 MCG/ML VIAL ONE (08:16)
[2023-10-08] MEDS ORDERED: morphine SULFATE/PF 1 MG/2 ML (2cc Syringe - QUVA) ONE (08:16)
[2023-10-08] MEDS ORDERED: OXYTOCIN 10 UNITS/ML VIAL ONE (09:25)
[2023-10-08] MEDS ORDERED: ONDANSETRON 4 MG/2 ML VIAL ONE (09:25)
[2023-10-08] MEDS ORDERED: ceFAZolin SODIUM 1 GM VIAL ONE (09:25)
[2023-10-08] MEDS ORDERED: KETOROLAC TROMETHAMINE 30 MG/1 ML VIAL ONE (09:25)
[2023-10-08] MEDS ORDERED: ONDANSETRON 4 MG/2 ML VIAL IVPB PRN (09:45)
[2023-10-08] MEDS: ACETAMINOPHEN 1000 MG/100 ML BAG IVPB SCH (10:15)
[2023-10-08] MEDS: OXYTOCIN 20 UNITS in 0.9% NS 20 UNIT/1,000 ML INFUS.BAG IV SCH (10:15)
[2023-10-08] MEDS: HYDROmorphone HCl 2 MG/ML VIAL IVPB ONE (14:22)
[2023-10-08] MEDS: IBUPROFEN 800 MG/8 ML IJ IVPB SCH (16:44)
[2023-10-08] MEDS: ACETAMINOPHEN 1000 MG/100 ML BAG IVPB ONE (20:17)
[2023-10-08] MEDS: morphine SULFATE/PF 1 MG/2 ML (2cc Syringe - QUVA) SPIN ONE (20:17)
[2023-10-08] MEDS: SENNOSIDES/DOCUSATE COMBO (SENNA PLUS) TABLET (UD) PO SCH (22:05)
[2023-10-09 06:02] VITALS: RESP 18
[2023-10-09] MEDS: ELECTROLYTE-148 SOLN 500 ML IV SCH (07:08)
[2023-10-09] MEDS: IBUPROFEN 600 MG TABLET (FP) PO PRN (08:08)
[2023-10-09] MEDS: SIMETHICONE 80 MG TAB.CHEW (FP) PO PRN (08:08)
[2023-10-09 08:37] LABS: BASO % 0.4 % (0-2.0); EOS % 0.8 % (0-4.5); HEMATOCRIT 33.9 % (32.4-45.2); HEMOGLOBIN 10.5 GM/dL (10.7-15.3); LYMPH % 17.9 % (8-40); MCH 23.5 pg (25.7-33.7); MEAN CELL VOLUME 75.6 fl (80-96); MEAN PLT VOLUME 8.8 fl (7.5-11.1); MONO % 5.8 % (3.8-10.2); NEUT % 75.1 % (42.8-82.8); PLATELET COUNT 287 10^3/uL (134-434); RBC 4.48 M/mm3 (3.60-5.2); RDW 20.6 % (11.6-15.6); WHITE BLOOD COUNT 10.6 K/mm3 (4.0-10.0)
[2023-10-09] MEDS ORDERED: BISACODYL 10 MG SUPP.RECT RC PRN (09:49)
[2023-10-09] MEDS: ENOXAPARIN NA (PORCINE) 40 MG/0.4 ML DISP.SYRIN SQ SCH (10:01)
[2023-10-09] MEDS: oxyCODONE HCL 5 MG TABLET PO PRN (10:04)
[2023-10-10] MEDS: ACETAMINOPHEN 500 MG TABLET (FP) PO PRN (12:28)
[2023-10-11 08:40] VITALS: BP 109/68; PULSE 84; TEMP 97.9
== END 2023-10-11 11:15 | disposition home or self-care (01) | DRG 540 ==
LOC: JLDR 06:05 → J3W 12:10
PROVIDERS: ADMIT Specialist; ATTEND Specialist
PROC: 10D00Z1 Extraction of Products of Conception, Low, Open Approach (ICD-10-PCS; principal; 2023-10-08)
PROC: 0JB80ZZ Excision of Abdomen Subcutaneous Tissue and Fascia, Open Approach (ICD-10-PCS; 2023-10-08)
PROC: 0JQ80ZZ Repair Abdomen Subcutaneous Tissue and Fascia, Open Approach (ICD-10-PCS; 2023-10-08)
PROC: 0UB70ZZ Excision of Bilateral Fallopian Tubes, Open Approach (ICD-10-PCS; 2023-10-08)
DX: O34.211 Maternal care for low transverse scar from previous cesarean delivery (principal); N85.8 Other specified noninflammatory disorders of uterus; Z3A.39 39 weeks gestation of pregnancy; Z30.2 Encounter for sterilization; Z37.0 Single live birth
CPT/HCPCS: 36415; 80053; 85025; 85027; 85610; 85730; 86780; 86850; 86900; 86901; 87389; 88304-TC; 88305-TC; 88307-TC; J0131